=== PATIENT | male | born 1995 | race Hispanic/Latino ===

== ENCOUNTER 2018-01-06 21:53 | Emergency (ER) | payer OTHER ==
[2018-01-06 22:08] VITALS: O2SAT 100
[2018-01-06] MEDS ORDERED: Famotidine 20mg/50ml Premix IVPB STA (22:46)
[2018-01-06] MEDS ORDERED: Sodium Chloride 0.9% 1,000 ML IV STA (22:46)
[2018-01-06] MEDS ORDERED: Famotidine 20mg/50ml 20 MG/50 ML BAG IVPB ONE (22:51)
--- NOTE | 2018-01-06 23:09 | ED PDOC ---
HPI: Abdomen Time Seen by Provider: 01/06/18 22:18 Chief Complaint (Nursing): GI Problem Chief Complaint (Provider): Abdominal pain History Per: Patient History/Exam Limitations: no limitations Onset/Duration Of Symptoms: Hrs (x5) Outside of [place] travel?: Yes Current Symptoms Are (Timing): Still Present Additional Complaint(s): 22 year old male presents to the emergency department complaining of abdominal discomfort associated with multiple episodes of vomiting, onset approximately five hours. Patient states he ate a salad earlier today and since then has been experiencing these symptoms. He states that he arrived home from a trip to a [facility] six days ago. Otherwise: (-) diarrhea, (-) fever, (-) melena , (-) hematochezia. Has no history of prior abdominal surgery. PMD: none provided Past Medical History Reviewed: Historical Data, Nursing Documentation, Vital Signs Vital Signs: Last Vital Signs Temp 98.3 F 01/07/18 00:13 Pulse 86 01/07/18 00:13 Resp 18 01/07/18 00:13 BP 118/55 L 01/07/18 00:13 Pulse Ox 100 01/07/18 00:13 - Medical History PMH: No Chronic Diseases - Surgical History Other surgeries: Adenoidectomy, neck cyst removal. - Family History Family History: States: Unknown Family Hx - Social History Current smoker - smoking cessation education provided: No Alcohol: Social Drugs: Denies - Home Medications Home Medications: Ambulatory Orders Medication Instructions Recorded Famotidine [Pepcid] 40 mg PO DAILY #20 tablet 01/07/18 Ondansetron ODT [Zofran ODT] 4 mg PO DAILY PRN #20 odt 01/07/18 - Allergies Allergies/Adverse Reactions: Allergies Allergy/AdvReac Type Severity Reaction Status Date / Time No Known Allergies Allergy Verified 01/06/18 22:06 Review of Systems ROS Statement: Except As Marked, All Systems Reviewed And Found Negative Constitutional: Negative for: Fever Gastrointestinal: Positive for: Vomiting, Other (abdominal discomfort). Negative for: Diarrhea, Melena, Hematochezia Physical Exam - Reviewed Nursing Documentation Reviewed: Yes Vital Signs Reviewed: Yes - Physical Exam Comments: GENERAL APPEARANCE: Patient is awake, alert, oriented x 3, in no distress. SKIN: Warm, dry; (-) cyanosis. EYES: (-) conjunctival pallor, (-) scleral icterus. ENMT: (+) dry mucous membranes. NECK: (-) tenderness, (-) stiffness, (-) lymphadenopathy. CHEST AND RESPIRATORY: (-) rales, (-) rhonchi, (-) wheezes; breath sounds equal bilaterally. HEART AND CARDIOVASCULAR: (-) irregularity; (-) murmur, (-) gallop. ABDOMEN AND GI: (-) distention. Bowel sounds active; (-) guarding, (-) rebound , (-) palpable masses, (-) CVA tenderness. EXTREMITIES: (-) deformity, (-) edema, (+) distal pulses. NEURO AND PSYCH: Mental status as above; (-) focal findings. - Laboratory Results Result Diagrams: 01/06/18 23:00 01/06/18 23:00 - ECG O2 Sat by Pulse Oximetry: 100 (RA) Pulse Ox Interpretation: Normal Medical Decision Making Medical Decision Making: Time: 22:46 Initial Impression: gastroenteritis, gastritis Initial Plan: --CMP --Lipase --CBC with differential --Sodium Chloride 0.9% 1,000ml IV --Pepcid 20mg IVPB --Zofran Inj 4mg IVP On re-evaluation, patient reports improvement of symptoms, denies any nausea or abdominal pain. On exam, patient remains AAOx3, in no acute distress. Abdomen soft, non-tender. Lab results reviewed : wnl. Diagnostic results d/w the patient in great detail. Diagnosis of possible gastroenteritis d/w the patient. Based on history, exam and diagnostic results, plan will be for outpatient follow up. Patient instructed to follow-up with pmd in 1-2 days without fail. Advised to take medication as prescribed. Return to the emergency room at any time for any new or worsening symptoms. Patient states ale fully agrees with and understands discharge instructions. States that he agrees with the plan and disposition. Verbalized and repeated discharge instructions and plan. I have given the patient opportunity to ask any additional questions. Scribe Attestation: Documented by Linda Russell acting as a scribe for Sabian Tao PA-C. MD Scribe Attestation: All medical record entries made by the Scribe were at my direction and personally dictated by me. I have reviewed the chart and agree that the record accurately reflects my personal performance of the history, physical exam, medical decision making, and the department course for this patient. I have also personally directed, reviewed, and agree with the discharge instructions and disposition. Disposition - Clinical Impression Clinical Impression: Vomiting - Patient ED Disposition Is Patient to be Admitted: No Counseled Patient/Family Regarding: Studies Performed, Diagnosis, Need For Followup, Rx Given - Disposition Disposition: Routine/Home Disposition Time: 00:00 Condition: IMPROVED Additional Instructions: Thank you for letting us take care of you today. You were treated for vomiting, possible gastroenteritis. The emergency medical care you received today was directed at your acute symptoms. If you were prescribed any medication, please fill it and take as directed. It may take several days for your symptoms to resolve. Return to the Emergency Department if your symptoms worsen, do not improve, or if you have any other problems. Please contact your doctor in 2 days for re-evaluation and follow up / or call one of the physicians/clinics you have been referred to that are listed on the Patient Visit Information form that is included in your discharge packet. Bring any paperwork you were given at discharge with you along with any medications you are taking to your follow up visit. Our treatment cannot replace ongoing medical care by a primary care provider (PCP) outside of the emergency department. Thank you for allowing the [facility] team to be part of your care today. Prescriptions: Famotidine [Pepcid] 40 mg PO DAILY #20 tablet Ondansetron ODT [Zofran ODT] 4 mg PO DAILY PRN #20 odt PRN Reason: Nausea/Vomiting Instructions: Viral Gastroenteritis, Nausea and Vomiting, Adult (DC) Forms: [employer] (Estonian), [facility] ED School/Work Excuse
[2018-01-06 23:20] LABS: ALB/GLOB RATIO 1.2 (1.0-2.1); ALBUMIN 4.3 g/dL (3.5-5.0); ALT/SGPT 39 U/L (21-72); AST/SGOT 31 U/L (17-59); BLOOD UREA NITROGEN 26 mg/dl (9-20); CALCIUM 9.3 mg/dL (8.4-10.2); GFR AFRICAN-AMERICAN > 60; GFR NON-AFRICAN AMERICAN > 60; LIPASE 155 U/L (23-300)
[2018-01-06 23:26] LABS: BASO % 0.1 % (0.0-2.0); EOS % 0.5 % (0.0-4.0); HEMOGLOBIN 17.1 g/dL (12.0-18.0); LYMPH # 0.7 K/uL (1.0-4.3); LYMPH % 7.7 % (20.0-40.0); MEAN CELL VOLUME 86.6 fl (80.0-94.0); MEAN CORPUSCULAR HEMOGLOBIN 31.3 pg (27.0-31.0); MEAN CORPUSCULAR HGB CONC 36.2 g/dL (33.0-37.0); MEAN PLATELET VOLUME 8.7 fl (7.2-11.7); MONO # 0.5 K/uL (0.0-0.8); MONO % 4.9 % (0.0-10.0); NEUT # 8.1 K/uL (1.8-7.0); NEUT % 86.8 % (50.0-75.0); NRBC % 0.1 % (0.0-0.0); PLATELET COUNT 246 K/uL (130-400); RBC 5.47 Mil/uL (4.40-5.90); RED CELL DISTRIBUTION WIDTH 13.3 % (11.5-14.5); WHITE BLOOD COUNT 9.3 K/uL (4.8-10.8)
[2018-01-07 00:14] VITALS: BP 118/55; PULSE 86; RESP 18; TEMP 98.3
[2018-01-07 03:35] LABS: BANDS 5 % (0-2); BASOPHIL 1 % (0-2); LYMPHOCYTE 7 % (20-50); MONOCYTE 5 % (0-10); NEUTROPHIL 82 % (42-75); TOTAL CELLS COUNTED 100
[2018-01-07 03:36] LABS: PLATELET ESTIMATE NORMAL (NORMAL)
[2018-01-07 03:37] LABS: ANISOCYTOSIS SLIGHT; LARGE PLATELETS PRESENT
== END 2018-01-07 00:19 | disposition home or self-care (01) ==
LOC: H.ER 21:53
DX: R11.10 Vomiting, unspecified (principal)
CPT/HCPCS: 80053; 83690; 85025; 96365; 96375; 99283; J2405; J7030